=== PATIENT | female | born 1995 | race African-American/Black ===

== ENCOUNTER 2016-05-09 09:36 | Emergency (ER) | payer OTHER ==
[~2016-05-09] VITALS: Ht 165.1 cm; Wt 63.5 kg
[2016-05-09 11:09] LABS: Albumin 4.6 g/dL (3.4-5.0); BUN/Creatinine Ratio 19.6; Bilirubin, Total 0.6 mg/dL (0.2-1.0); Potassium 3.7 mmol/L (3.5-5.1); Total Protein 8.6 g/dL (6.4-8.2)
[2016-05-09 11:10] LABS: Basophils # (auto) 0 uL; Basophils % (auto) 0.3 % (0.0-2.0); DEFINITIVE VIEW TRANSMISSION; Eosinophils # (auto) 0 uL; Hematocrit 37.5 % (36.0-46.0); Hemoglobin 11.4 g/dL (12.2-16.2); Lymphocytes # (auto) 1.2 uL; Lymphocytes % (auto) 15.5 % (10.0-50.0); Mean Corpuscular Hemoglobin 20.2 pg (28.0-32.0); Mean Corpuscular Hgb Conc. 30.4 g/dL (32.0-36.0); Mean Corpuscular Volume 66.7 fL (80.0-100.0); Mean Platelet Volume 8.9 fL (7.4-10.4); Monocytes # (auto) 0.5 uL; Monocytes % (auto) 6.9 % (0.0-12.0); Neutrophils # (auto) 6.1 uL; Neutrophils % (auto) 77.3 % (37.0-80.0); Platelet Count (auto) 297 10^3/uL (140-450); White Blood Cell 7.9 10^3/uL (4.4-10.8)
[2016-05-09 11:21] LABS: Red Cell Distribution Width 20.9 % (11.6-16.0)
[2016-05-09] MEDS ORDERED: SODIUM CHLORIDE 0.9% 1,000 ML IV ONE ×2 (12:00→14:30)
[2016-05-09] MEDS ORDERED: ONDANSETRON HCL 4 MG/2 ML VIAL IV ONE (12:00)
[2016-05-09 12:15] LABS: Urine Bilirubin Negative (Negative); Urine Blood Negative /uL (Negative); Urine Color Yellow (Yellow); Urine Glucose Normal (Normal); Urine Mucus FEW (None Seen); Urine Nitrite Negative (Negative); Urine RBC 1 /hpf (0 - 4); Urine Squamous Epithelial Cell FEW /hpf (<5); Urine pH 5.5 (5.0-8.0)
[2016-05-09 12:24] LABS: Urine Ketone 4+ (Negative)
[2016-05-09 13:41] LABS: Anisocytosis Moderate; Burr Cells MODERATE; Hypochromia Moderate; Microcytosis Marked; Ovalocytes MODERATE; Platelet Estimate Adequate; Schistocytes FEW; Tear Drop Cells FEW
[2016-05-09 15:42] VITALS: BP 113/50
== END 2016-05-09 17:59 | disposition home or self-care (01) ==
LOC: ER 09:36
DX: O21.1 Hyperemesis gravidarum with metabolic disturbance (principal); E86.0 Dehydration; Z3A.08 8 weeks gestation of pregnancy; O26.891 Other specified pregnancy related conditions, first trimester; R10.30 Lower abdominal pain, unspecified
CPT/HCPCS: 36415; 76801; 80053; 81001; 81025; 84702; 85025; 96361; 96374; 99285; J2405; J7030